=== PATIENT | male | born 1975 | race Caucasian/White ===

== ENCOUNTER 2019-07-26 17:52 | Emergency (ER) | payer BC, OTHER ==
[~2019-07-26] VITALS: Ht 183 cm; Wt 111.5 kg
[2019-07-26] MEDS ORDERED: ONDANSETRON 4 MG (ZOFRAN) ORAL DISSOLVE TAB PO STA (18:03)
[2019-07-26] MEDS ORDERED: KETOROLAC 60 MG/2 ML VIAL IM ONE (18:15)
--- NOTE | 2019-07-26 18:19 | ED GU-Male ---
General Chief Complaint: - Urinary Stated Complaint: LOW BACK PAIN, POSS KIDNEY STONE Nursing Triage Note: Patient reports sudden onset of left flank pain this afternoon at 2 pm, states he has had multiple kidney stones in the past, most recently in May. He states he has had one lithotripsy, but has been able to pass all his other stones on his own. Source: patient, spouse Exam Limitations: no limitations History of Present Illness Date Seen by Provider: Jul 26, 2019 Time Seen by Provider: 17:55 Initial Comments Patient presents to ER by private conveyance with chief complaint of some left flank pain radiating down to his left groin and dysuria consistent with history of recent kidney stones. He's passed all his stones on his own in the past with exception of one lithotripsy. He is not having any fever or chills but is having nausea and pain starting about 2:00 this afternoon. He says this is consistent with his kidney stones and has not taken anything for the pain yet. No other significant medical history surgeries or medical allergies. He does not smoke or use recreational drugs but does occasionally have a beer a month. Allergies and Home Medications Allergies Coded Allergies: No Known Drug Allergies (Unverified , 07/26/19) Home Medications Cephalexin 500 Mg Capsule, 500 MG PO BID Prescribed by: RODERICK BAY on 07/26/191916 Hydrocodone/Acetaminophen 1 Each Tablet, 1 TAB PO Q4-6HR Prescribed by: RODERICK BAY on 07/26/191916 Ondansetron 4 Mg Tab.rapdis, 4 MG PO Q6H PRN for NAUSEA/VOMITING Prescribed by: RODERICK BAY on 07/26/191916 Tamsulosin HCl 0.4 Mg Cap, 0.4 MG PO DAILY Prescribed by: RODERICK BAY on 07/26/191916 Patient Home Medication List Home Medication List Reviewed: Yes Review of Systems Review of Systems Constitutional: No chills, No fever EENTM: No ear discharge, No ear pain Respiratory: No cough, No short of breath Cardiovascular: No chest pain, No edema Gastrointestinal: see HPI Genitourinary: see HPI Musculoskeletal: see HPI, back pain Past Eewidvy-Wmodps-Prgoqn Hx Patient Social History Alcohol Use: Occasionally Uses Alcohol Beverage of Choice: Beer (1 per month) Recreational Drug Use: No Smoking Status: Never a Smoker 2nd Hand Smoke Exposure: No Recent Foreign Travel: No Contact w/Someone Who Travel: No Recent Infectious Disease Expo: No Recent Hopitalizations: No Physical Abuse: No Sexual Abuse: No Mistreated: No Fear: No Seasonal Allergies Seasonal Allergies: No Past Medical History Surgeries: Yes (lithotripsy) Orthopedic, Vasectomy Respiratory: No Cardiac: No Neurological: No Genitourinary: No Gastrointestinal: No Musculoskeletal: No Endocrine: No HEENT: No Cancer: No Psychosocial: No Integumentary: No Physical Exam Vital Signs Vital Signs - First Documented 07/26/19 18:03 Temp 37.5 Pulse 75 Resp 18 B/P (MAP) 191/110 (137) Pulse Ox 97 O2 Delivery Room Air Capillary Refill : Less Than 3 Seconds Height, Weight, BMI Height: '" Weight: lbs. oz. kg; 33.00 BMI Method: General Appearance: WD/WN, mild distress HEENT: PERRL/EOMI, pharynx normal Neck: full range of motion, normal inspection Cardiovascular: normal peripheral pulses, regular rate, rhythm Respiratory: no respiratory distress, no accessory muscle use Gastrointestinal: normal bowel sounds, soft, tenderness (left inguinal) Back: CVA tenderness (L) Progress/Results/Core Measures Suspected Sepsis Recent Fever Within 48 Hours: No Infection Criteria Present: None New/Unexplained Altered Menta: No Sepsis Screen: No Definite Risk SIRS Temperature: Pulse: 75 Respiratory Rate: 18 Blood Pressure 191 /110 Mean: 137 Results/Orders Lab Results Laboratory Tests Test 07/26/19 18:08 Range/Units Urine Color YELLOW Urine Clarity CLEAR Urine pH 5.5 5-9 Urine Specific [place] 1.025 H 1.016-1.022 Urine Protein NEGATIVE NEGATIVE Urine Glucose (UA) NEGATIVE NEGATIVE Urine Ketones NEGATIVE NEGATIVE Urine Nitrite NEGATIVE NEGATIVE Urine Bilirubin NEGATIVE NEGATIVE Urine Urobilinogen 0.2 NORMAL MG/DL Urine Leukocyte Esterase NEGATIVE NEGATIVE Urine RBC (Auto) 3+ H NEGATIVE Urine RBC >100 H /HPF Urine WBC 0-2 /HPF Urine Squamous Epithelial Cells RARE /HPF Urine Crystals NONE /LPF Urine Bacteria NONE /HPF Urine Casts NONE /LPF Urine Mucus NEGATIVE /LPF Urine Culture Indicated NO My Orders Orders - RODERICK BAY Ondansetron Oral Dissolve Tab (Zofran (07/26/19 18:03) Ketorolac Injection (Toradol Injection) (07/26/19 18:15) Ua Culture If Indicated (07/26/19 18:03) Ct Abd/Pelvis Wo(Kidney Stone) (07/26/19 18:39) Abdomen (Kub) 1 View (07/26/19 18:39) Ceftriaxone For Im Use (Rocephin For Im (07/26/19 19:30) Lidocaine 1% Inj 20 Ml (Xylocaine 1% Inj (07/26/19 19:30) Medications Given in ED Current Medications Medications Dose Ordered Sig/Erick Route Start Time Stop Time Status Last Admin Dose Admin Ketorolac Tromethamine 60 mg ONCE ONCE IM 07/26/19 18:15 07/26/19 18:16 DC 07/26/19 18:11 60 MG Vital Signs/I&O 07/26/19 18:03 Temp 37.5 Pulse 75 Resp 18 B/P (MAP) 191/110 (137) Pulse Ox 97 O2 Delivery Room Air Capillary Refill : Less Than 3 Seconds Blood Pressure Mean: 137 Progress Note : Time: 18:18 Progress Note Zofran sublingual, Toradol IM, urinalysis. Diagnostic Imaging Diagonstic Imaging: CT (without IV contrast kidney stone study) Plain Films/CT/US/NM/MRI: abdomen, pelvis Comments Left ureteral calculi midway down the ureter approximately 5 mm with subsequent proximal hydroureter and hydronephrosis. NAME: MAN MARTÍNEZ [facility] REC#: [id number] PT STATUS: REG ER : 1975 PHYSICIAN: RODERICK BAY MD ADMIT DATE: 07/26/19/ER FS Signed Date of Exam:07/26/19 CT ABD/PELVIS WO(KIDNEY STONE) PROCEDURE: CT urinary tract, rule out kidney stone. TECHNIQUE: Multiple contiguous axial images were obtained through the abdomen and pelvis without the use of intravenous contrast. Auto Exposure Controls were utilized during the CT exam to meet ALARA standards for radiation dose reduction. INDICATION: Left flank pain, abdominal pain. COMPARISON: None. FINDINGS: The lung bases are clear. The gallbladder, liver, spleen, pancreas, adrenal glands and right kidney are unremarkable. There is mild left-sided hydronephrosis secondary to an obstructive 6.5 mm stone in the proximal to mid left ureter. There is some slight inflammatory change in the retroperitoneum. There is no abscess, free air or free fluid. The urinary bladder and distal ureters are unremarkable. Course and caliber of large and small bowel are normal. The appendix is unremarkable. Osseous structures are age-appropriate. IMPRESSION: Mild left-sided hydronephrosis secondary to an obstructive 6.5 mm stone in mid to proximal left ureter. Dictated by: Dictated on workstation # [id number] Dict: 07/26/191908 Trans: 07/26/191913 [facility] [id number] Interpreted by: JUAN LAST Electronically signed by: JUAN LAST 07/26/191913 Reviewed: Reviewed by Me Diagonstic Imaging: Xray Plain Films/CT/US/NM/MRI: abdomen (KUB 1 view) Comments Opacification overlying the left ureter senior living down approximately 5-6 mm noted on the one view KUB. Unremarkable bowel gas pattern. NAME: MAN MARTÍNEZ [facility] REC#: [id number] PT STATUS: REG ER : 1975 PHYSICIAN: RODERICK BAY MD ADMIT DATE: 07/26/19/ER FS Draft Date of Exam:07/26/19 ABDOMEN (KUB) 1 VIEW INDICATION: Abdominal pain. COMPARISON: None. FINDINGS: Two views of the abdomen demonstrate calcification in the mid left ureter. See CT dictation. IMPRESSION: Left nephrolithiasis. Dictated on workstation # [id number] Dict: 07/26/191909 Trans: 07/26/191919 [id number] Interpreted by: JUAN LAST Electronically signed by: Reviewed: Reviewed by Me Departure Impression Primary Impression: Ureteral calculus, left Disposition: 01 HOME, SELF-CARE Condition: Stable Departure-Patient Inst. Decision time for Depature: 19:14 Referrals: RICARDO HOWARD MD (PCP) Primary Care Physician LUC PERSAUD MD Patient Instructions: Kidney Stones (DC) Add. Discharge Instructions: Drink plenty fluids. Caffeine is okay. Ibuprofen 800 mg every 8 hours as needed for pain. Hydrocodone one tablet every 6 hours as needed for breakthrough pain. Ondansetron one tablet under the tongue as necessary for nausea every 6 hours. Keflex one capsule twice a day for the next week to treat infection. Flomax 1 tablet daily until the kidney stone passes to help float the stone out. Follow-up with urology, Dr. Persaud as necessary if not seeing improvement in the next day or 2. Strain your urine to try and catch the stone. All discharge instructions reviewed with patient and/or family. Voiced understanding. Scripts Cephalexin (Keflex) 500 Mg Capsule 500 MG PO BID for 7 Days, #14 CAP 0 Refills Prov: RODERICK BAY 07/26/19 Tamsulosin HCl (Flomax) 0.4 Mg Cap 0.4 MG PO DAILY for 7 Days, #7 CAP 0 Refills Prov: RODERICK BAY 07/26/19 Hydrocodone/Acetaminophen (Hydrocodone-Acetamin 5-325 mg) 1 Each Tablet 1 TAB PO Q4-6HR for PAIN-MODERATE for 7 Days, #12 TAB 0 Refills Prov: RODERICK BAY 07/26/19 Ondansetron (Ondansetron Odt) 4 Mg Tab.rapdis 4 MG PO Q6H PRN for NAUSEA/VOMITING, #8 TAB 0 Refills Prov: RODERICK BAY 07/26/19 RODERICK BAY Jul 26, 2019 18:19
[2019-07-26 18:36] LABS: BILIRUBIN,URINE NEGATIVE (NEGATIVE); CLARITY,URINE CLEAR; COLOR,URINE YELLOW; GLUCOSE, URINE (UA) NEGATIVE (NEGATIVE); KETONES,URINE NEGATIVE (NEGATIVE); LEUKOCYTE ESTERASE ,URINE NEGATIVE (NEGATIVE); NITRITE,URINE NEGATIVE (NEGATIVE); PH,URINE 5.5 (5-9); PROTEIN,URINE NEGATIVE (NEGATIVE); RBC,URINE >100 /HPF; UROBILINOGEN,URINE 0.2 MG/DL (NORMAL); WBC,URINE 0-2 /HPF
[2019-07-26 18:37] LABS: SQUAMOUS EPITHELIAL CELL,UR RARE /HPF
--- NOTE | 2019-07-26 19:14 | Diagnostic Imaging Report ---
PROCEDURE: CT urinary tract, rule out kidney stone. TECHNIQUE: Multiple contiguous axial images were obtained through the abdomen and pelvis without the use of intravenous contrast. Auto Exposure Controls were utilized during the CT exam to meet ALARA standards for radiation dose reduction. INDICATION: Left flank pain, abdominal pain. COMPARISON: None. FINDINGS: The lung bases are clear. The gallbladder, liver, spleen, pancreas, adrenal glands and right kidney are unremarkable. There is mild left-sided hydronephrosis secondary to an obstructive 6.5 mm stone in the proximal to mid left ureter. There is some slight inflammatory change in the retroperitoneum. There is no abscess, free air or free fluid. The urinary bladder and distal ureters are unremarkable. Course and caliber of large and small bowel are normal. The appendix is unremarkable. Osseous structures are age-appropriate. IMPRESSION: Mild left-sided hydronephrosis secondary to an obstructive 6.5 mm stone in mid to proximal left ureter. Dictated by: Dictated on workstation # [id number]
[2019-07-26] MEDS ORDERED: ONDA4TAB11 PO (19:17)
[2019-07-26] MEDS ORDERED: HYDR-3812 PO (19:17)
[2019-07-26] MEDS ORDERED: CEPH-507 PO (19:17)
[2019-07-26] MEDS ORDERED: TAMS0.4C98 PO (19:17)
--- NOTE | 2019-07-26 19:20 | Diagnostic Imaging Report ---
INDICATION: Abdominal pain. COMPARISON: None. FINDINGS: Two views of the abdomen demonstrate calcification in the mid left ureter. See CT dictation. IMPRESSION: Left nephrolithiasis. Dictated by: Dictated on workstation # [id number]
[2019-07-26] MEDS ORDERED: LIDOCAINE 1% INJ 20 ML 20 ML VIAL INJ ONE (19:30)
[2019-07-26] MEDS ORDERED: cefTRIAXone 1,000 MG/2.86 ml vial (IM ONLY) IM ONE (19:30)
[2019-07-26 19:37] VITALS: BP 191/110
== END 2019-07-26 19:35 | disposition home or self-care (01) ==
LOC: EDUNIT# 17:52 → ER FS 17:53
DX: N13.2 Hydronephrosis with renal and ureteral calculous obstruction (principal)
CPT/HCPCS: 74018; 74176; 81000

== ENCOUNTER → 2019-08-11 | Outpatient (CLI) | payer BC ==
[~2019-08-11] MED LIST: CEPH-507 PO; HYDR-3812 PO; ONDA4TAB11 PO; TAMS0.4C98 PO
--- NOTE | 2019-08-11 14:42 | Diagnostic Imaging Report ---
INDICATION: History of left-sided ureteral calculus. Interval lithotripsy. Follow-up. COMPARISON: 07/26/2019. FINDINGS: Two frontal radiographic views of the abdomen were obtained. Calculus projecting over the inferior left psoas muscle on prior exam is now inconspicuous. No other unexpected extraosseous calcifications or radiopaque foreign bodies are seen. Small bowel loops are nondistended. There is no large collection of free intraperitoneal air. Moderate air and stool is noted scattered throughout the colon. IMPRESSION: 1. Previously described left ureteral calculus cannot be identified on this exam. Findings may relate to interval lithotripsy. Dictated by: Dictated on workstation # [id number]
== END ==
LOC: RAD FS 12:44
DX: N20.0 Calculus of kidney (principal); Z87.442 Personal history of urinary calculi
CPT/HCPCS: 74018